=== PATIENT | female | born 1990 | race Caucasian/White ===

== ENCOUNTER → 2017-12-20 16:26 | Outpatient (CLI) | payer BC, SELFPAY | PROVIDERS: Visit Provider Obstetrics & Gynecology | DX: Z12.4 Encounter for screening for malignant neoplasm of cervix (principal) | CPT/HCPCS: 88175; G0145 ==

== ENCOUNTER → 2018-07-31 15:18 | Outpatient (CLI) | payer BC, SELFPAY ==
[2014-10-21 07:07] VITALS: BMI 27.2
[2018-07-31 18:26] LABS: Chlamydia Trachomatis by PCR Negative (Negative); Neisserai gonorrhoeae by PCR Negative (Negative); Probe Check PASS; Sample Adequacy Control PASS; Specimen Processing Control PASS
== END ==
PROVIDERS: Visit Provider Obstetrics & Gynecology
DX: Z34.81 Encounter for supervision of other normal pregnancy, first trimester (principal); Z11.3 Encounter for screening for infections with a predominantly sexual mode of transmission
CPT/HCPCS: 87491; 87591

== ENCOUNTER → 2018-08-26 13:27 | Outpatient (CLI) | payer BC, SELFPAY ==
[2018-08-26 15:52] LABS: Absolute Lymphocyte Count 2.03 X10^3/ul (0.83-4.51); Absolute Neutrophil Count 6.8 X10^3/uL (2.0-7.7); Basophil# 0.02 X10^3/uL; Basophil% 0.2 % (0-1); Eosinophil# 0.14 X10^3/uL; Eosinophils% 1.4 % (0-5); Hematocrit 37.3 % (37-47); Hemoglobin 12.2 g/dl (12.0-15.0); Lymphocyte # 2.03 X10^3/ul (4.0); Lymphocyte % 20.9 % (19-41); Mean Corp Hgb Conc 32.7 g/gl (32-36); Mean Corpuscular Hgb 27.9 pg (27.0-32.0); Mean Corpuscular Volume 85.4 fL (81-99); Mean Platelet Vol. 9.9 fl (6.2-12.0); Monocyte# 0.76 X10^3/uL; Monocyte% 7.8 % (0-10); Neutrophil # 6.75 X10^3/uL (2.7-7.7); Neutrophil % 69.4 % (47-70); Platelet Count 346 K/mm3 (150-450); RBC Distribution Width CV 12.3 % (11.6-14.6); Red Blood Count 4.37 M/mm3 (4.2-5.4); White Blood Count 9.7 K/mm3 (4.4-11.0)
[2018-08-26 15:54] LABS: POSITIVE COUNT NO; POSITIVE DIFFERENTIAL NO; POSITIVE MORPHOLOGY NO
[2018-08-26 15:55] LABS: Color, Urine Yellow (Yellow); Glucose, Dipstick Normal (Normal); Ketone-Dipstick Negative (Negative); Leukocyte Esterase-Dipstick 25 /ul (Negative); Nitrite-Dipstick Negative (Negative); Occult Blood-Urine Negative /ul (Negative); Protein-Dipstick Negative (Negative); Specific Gravity, Urine 1.005 (1.002-1.030); Urine Bilirubin Dipstick Negative (Negative); Urine Clarity Clear (Clear); Urine Urobilinogen Normal (Normal)
[2018-08-26 16:03] LABS: COTININE Drug Screen Positive (<200 ng/mL)
[2018-08-26 16:14] LABS: Thyroid Stim Hormone (TSH) 0.92 uIU/mL (0.358-3.74)
[2018-08-26 16:24] LABS: Amphetamine Urine VISTA NEGATIVE (<1000 ng/mL); Barbiturate Urine VISTA NEGATIVE (< 200 ng/mL); Benzodiazepine Urine VISTA NEGATIVE (< 200 ng/mL); Cocaine Urine VISTA NEGATIVE (< 300 ng/mL); Ecstacy Urine VISTA NEGATIVE (< 500 ng/mL); Methadone Urine VISTA NEGATIVE (< 300 ng/mL); PCP Urine VISTA NEGATIVE (< 25 ng/mL); THC Urine VISTA NEGATIVE (< 50 ng/mL); Vista UDS pH Range 7
[2018-08-26 16:58] LABS: HIV - WCH Non-Reactive (Nonreactive); Rubella IgG > 500.0 IU/mL; Vitamin D,25 Hydroxy 23.9 ng/mL (29.95-100.01)
[2018-08-29 03:39] LABS: Prenatal RPR NONREACTIVE (NONREACTIVE)
[2018-08-29 12:11] LABS: HEPATITIS B SURFACE AG Negative (Negative)
[2018-08-29 12:12] LABS: Hep C Antibodies <0.1 s/co ratio (0.0-0.9)
== END ==
PROVIDERS: Visit Provider Obstetrics & Gynecology
DX: Z34.81 Encounter for supervision of other normal pregnancy, first trimester (principal)
CPT/HCPCS: 36415; 80307; 81002; 82306; 84443; 85025; 86703; 86762; 86803; 87340

== ENCOUNTER → 2018-09-15 12:24 | Outpatient (CLI) | payer BC, SELFPAY ==
--- NOTE | 2018-09-15 12:29 | US_ITS ---
STUDY: ULTRASOUND BREAST - LEFT REASON FOR EXAM: Female, 27 years old. Breast lump on the left side for 2 weeks status post Earnest Knauer resolved. TECHNIQUE: Axial and longitudinal images of the LEFT breast were performed with a high resolution ultrasound transducer. COMPARISON: None. FINDINGS: LEFT Breast: Multiple ultrasound static images that are marked left breast area of palpable abnormality are submitted for interpretation and documentation. There is no sonographically evident discrete mass, cyst or nodule. There is no fluid collection. US/Breast Limited Unilateral IMPRESSION: No sonographically evident pathology. ASSESSMENT CATEGORY: BIRADS Category 1: Negative. A letter regarding these results will be sent to the patient by the facility within 30 days. Electronically Signed: Fredi Martinez MD at 13:57 EDT , Service support ,
== END ==
PROVIDERS: Visit Provider Obstetrics & Gynecology
DX: O26.891 Other specified pregnancy related conditions, first trimester (principal); N63.20 Unspecified lump in the left breast, unspecified quadrant; Z3A.13 13 weeks gestation of pregnancy
CPT/HCPCS: 76642

== ENCOUNTER → 2018-12-26 10:53 | Outpatient (CLI) | payer BC, SELFPAY ==
[2018-12-26 12:15] LABS: Glucose Challenge Gest 1H 50g 144 mg/dL (70-140)
[2018-12-26 12:23] LABS: Hematocrit 31.2 % (37-47); Hemoglobin 9.9 g/dL (12.0-15.0); Mean Corp Hgb Conc 31.7 g/dL (32-36); Mean Corpuscular Hgb 28.2 pg (27.0-32.0); Mean Corpuscular Volume 88.9 fL (81-99); Mean Platelet Vol. 10.5 fl (6.2-12.0); Platelet Count 261 K/mm3 (150-450); RBC Distribution Width CV 12.1 % (11.6-14.6); RBC Distribution Width SD 38.5 fl (35.1-43.9); Red Blood Count 3.51 M/mm3 (4.2-5.4); White Blood Count 8.4 K/mm3 (4.4-11.0)
[2018-12-29 15:57] LABS: Ferritin 41 ng/mL (8-252)
== END ==
PROVIDERS: Visit Provider Obstetrics & Gynecology
DX: Z34.82 Encounter for supervision of other normal pregnancy, second trimester (principal)
CPT/HCPCS: 36415; 82728; 82950; 85027

== ENCOUNTER → 2019-01-06 09:52 | Outpatient (CLI) | payer BC, SELFPAY ==
[2019-01-06 11:34] LABS: Glucose GTT-Gestation. Fasting 67 mg/dL (<105)
[2019-01-06 12:00] LABS: Glucose GTT-Gestational 1 Hr 137 mg/dL (<190)
[2019-01-06 12:53] LABS: Glucose GTT-Gestational 2 Hr 128 mg/dL (<165)
[2019-01-06 14:05] LABS: Glucose GTT-Gestational 3 Hr 79 L (<145)
== END ==
PROVIDERS: Referring Provider Obstetrics & Gynecology; Visit Provider Obstetrics & Gynecology
DX: O99.810 Abnormal glucose complicating pregnancy (principal); Z3A.00 Weeks of gestation of pregnancy not specified
CPT/HCPCS: 36415; 82951; 82952

== ENCOUNTER → 2019-02-27 15:00 | Outpatient (CLI) | payer BC, SELFPAY ==
[2014-10-21 07:07] VITALS: BMI 27.2
== END ==
PROVIDERS: Visit Provider Obstetrics & Gynecology
DX: Z36.85 Encounter for antenatal screening for Streptococcus B (principal)
CPT/HCPCS: 87081

== ENCOUNTER 2019-03-19 06:55 | Inpatient (IN) | payer BC, SELFPAY ==
[2014-10-21 07:07] VITALS: BMI 27.2
[2019-03-19] MEDS: Lactated Ringers 1,000 ML 50 ML IV (07:10)
[2019-03-19 07:30] VITALS: BMI 29.1
--- NOTE | 2019-03-19 07:31 | PCM.HP.OB ---
- Problem List (1) 39 weeks gestation of Status: Acute History Date of Admission: 03/19/19 Final OMAYRA: 03/22/19 Final OMAYRA Source: US <20 weeks Gestational age: 39 Weeks and 4 Days History of this : This is a 28 year-old, G [4], P [2012], at 39 4/7 weeks gestational age for scheduled induction of labor. Allergies Penicillins Allergy (Verified 03/17/14 10:44) Hives Home Medications: Home Medications RX: Vits [Prenatabs FA ] 1 tablet PO DAILY 08/16/14 RX: Naproxen [Naprosyn] 500 mg PO Q12H PRN PRN #40 tablet 10/21/14 RX: Senna/Docusate Sodium [Senokot-S] 1 - 2 tablet PO DAILY PRN PRN #30 tablet 10/21/14 Smoking Status: Former smoker Alcohol: None Number of Fetus(es): 1 NST - FHR Rate Baby A Baseline: 135 Variability:: Moderate Accelerations:: 15 x 15 Decelerations:: None NST Reactive:: Yes FHR Category:: Category I Uterine Activity:: 10/03 History Past Pregnancies: Past Pregnancies Delivery Date Name GA/Weeks Outcome Route Weight Infant Gender Labor Length Anesthesia Delivery Location Provider FOB 02/04 8 SAB Naveen 07/08 William 40 Living 5lb 13oz M 4 Epidural [facility] Naveen 10/08 Luciano 38 Living 7lb 4oz M 12 None [facility] Naveen Labs: Mom's Problem List Problem Status Onset Code 39 weeks gestation of Acute Z3A.39 Mom's Labs & Results 03/19/19 03/19/19 07:50 07:50 WBC 12.5 H RBC 3.33 L Hgb 9.6 L Hct 29.4 L MCV 88.3 MCH 28.8 MCHC 32.7 RDW Std Deviation 39.7 RDW Coeff of Nanci 12.4 Plt Count 276 MPV 10.5 Immature Gran % (Auto) 1.800 H Neut % (Auto) 78.4 H Lymph % (Auto) 12.5 L [place] % (Auto) 6.3 Eos % (Auto) 0.6 Baso % (Auto) 0.4 Absolute Neuts (auto) 9.8 H Absolute Lymphs (auto) 1.56 Nucleated RBC % 0 Blood Type B POSITIVE Antibody Screen NEGATIVE Course Did the patient receive Yes care? Labs Blood Type: B RH: POSITIVE RPR/VDRL/Syphilis Nonreactive Rubella status Immune HbSAg Negative Date Done: 08/26/18 HIV/AIDS Non-Reactive Group B Strep: Negative Current Obstetrical History Gestational Diabetes No Incompetent Cervix No Infertility No IUGR No Macrosomia No Hypertension/Pre-eclampsia No Placenta Previa/Abruption No PTL/PROM No Uterine anomaly No Oligohydramnios No Polyhydramnios No Multiple gestation No Past Medical History Asthma No Diabetes No Hypertension No Heart disease No Mitral valve prolapse No Neurologic/Seizure disorder/ No Migraines Kidney disease No Liver disease No Varicosities No Clotting disorders/Hx of DVT No Thyroid Dysfunction No Other medical diseases No Psychiatric disorders No Major trauma No Abnormal PAP smear No Sleep apnea No Mammogram in the last 2 years No Social History Marital Status: Alleged father Naveen Sifuentes Hx Smoking Yes Smoking Status Former smoker Expected Infant Delivery Method: Spontaneous Vaginal Number of Visits: 13 Physical Exam Vitals: avss General: Alert, Oriented x3, Cooperative, No apparent distress Lungs: Normal air movement Abdomen: Soft, Non Tender, Non-Distended, Gravid Neurological: Neuro grossly intact Estimated gestational size: Appropriate for gestational size Cervix Dilation (cm): 3.5 Station: -3 Effacement (%): 75 Assessment/Plan All Active Problems 39 weeks gestation of (Acute) This is a 28 year-old, G [4], P [2012], at 39 4/7 weeks gestational age presenting for IOL. -Pitocin induction as planned - status reassuring
[2019-03-19] MEDS: Oxytocin 30 units/NS 500 ml 30 UNITS/500 ML IV.SOLN IV (08:05)
[2019-03-19 08:07] LABS: Absolute Lymphocyte Count 1.56 X10^3/uL (0.83-4.51); Absolute Neutrophil Count 9.8 X10^3/uL (2.0-7.7); Basophil# 0.05 X10^3/uL; Basophil% 0.4 % (0-1); Eosinophil# 0.08 X10^3/uL; Eosinophils% 0.6 % (0-5); Hematocrit 29.4 % (37-47); Hemoglobin 9.6 g/dL (12.0-15.0); Lymphocyte # 1.56 X10^3/ul (4.0); Lymphocyte % 12.5 % (19-41); Mean Corp Hgb Conc 32.7 g/dL (32-36); Mean Corpuscular Hgb 28.8 pg (27.0-32.0); Mean Corpuscular Volume 88.3 fL (81-99); Mean Platelet Vol. 10.5 fl (6.2-12.0); Monocyte# 0.78 X10^3/uL; Monocyte% 6.3 % (0-10); NRBC Flagged by Analyzer 0 % (0-5); Neutrophil # 9.78 X10^3/uL (2.7-7.7); Neutrophil % 78.4 % (47-70); Platelet Count 276 K/mm3 (150-450); RBC Distribution Width CV 12.4 % (11.6-14.6); RBC Distribution Width SD 39.7 fl (35.1-43.9); Red Blood Count 3.33 M/mm3 (4.2-5.4); White Blood Count 12.5 K/mm3 (4.4-11.0)
--- NOTE | 2019-03-19 10:49 | PCM.PN.BLA ---
Progress Note LABOR PROGRESS NOTE Contractions are regular. AVSS GEN - NAD, AAO x 3 SVE 5/75/-2 FHR 4-5/10 min TOCO 4-5/10 min A/P: 28yo @ 39 4/7wga, Cat I FHR - IOL -Amniotomy performed with clear fluid -Continue pitocin as tolerated by mother and fetus
--- NOTE | 2019-03-19 14:13 | PCM.OPRPT ---
Problem List (1) 39 weeks gestation of Status: Acute Report of Operation Date of Procedure: 03/19/19 Vaginal Delivery Maternal Presentation: Elective Induction Method of Induction: Pitocin, Amniotomy Amniotic Membrane Rupture Type: Artificial Rupture of Membrane time: 03/19/19 1036h Amniotic Fluid Description: Clear Final OMAYRA: 03/22/19 Final OMAYRA Source: US <20 weeks Gestational age: 39 Weeks and 4 Days Date of Procedure: 03/19/19 Pre-Operative Diagnosis: 39 4/7wga Post-Operative Diagnosis: 39 4/7wga Surgery/ Procedure Performed: Spontaneous Vaginal Delivery Type of Anesthesia: None Description of Procedure: Patient was fully dilated with bulging perineum on my arrival. Category 1 heart rate tracing. She pushed to deliver a vigorous male over an intact perineum. The was placed on maternal abdomen and further attended by nursery personnel. Cord was doubly clamped and cut at approximately 2 minutes of life. The placenta delivered spontaneously and appeared intact on inspection. The fundus was firm at one finger with below the umbilicus. Presentation: Vertex, DELICIA Placental Delivery Description: Spontaneous Placenta Disposition: [facility] Cord Vessel Description: 3 Vessels Nuchal Cord Compression: Without compression Cord Entanglement: None Estimated Blood Loss: 50 ml Infant A gender: Male (1 minute): 8 (5 minute): 9 Episiotomy Description: None Laceration: None Medications given after delivery: IV Pitocin Complications: None
[2019-03-19] MEDS: Acetaminophen 325 MG Tablet PO (15:23)
[2019-03-19 19:55] VITALS: BP 103/63; PULSE 86; RESP 16; TEMP 36.7; O2SAT 97
--- NOTE | 2019-03-19 20:49 | DCINST_ITS ---
Discharge Diet: No Restrictions Discharge Activity: Return to Normal Activity Additional Instructions: If you experience any of the following, contact your healthcare provider. * Bleeding that soaks a pad every hour for 2 hours * Fever 100.4 or higher * Unrelieved incision or abdominal pain * Swelling, redness, discharge or bleeding from your incision or episiotomy site * Your incision begins to separate * Problems urinating (including inability to urinate or burning while urinating). * Visual changes * Severe headache * Flu-like symptoms * Pain or redness in one of both of your breasts * Pain, warmth, tenderness or swelling in your legs, especially the calf area * Frequent nausea and vomiting * Symptoms of depression or anxiety If you experience any of the following, call 911 or go to the nearest Emergency Room. * Chest pain * Problems breathing * Seizure activity * Partial or complete paralysis of a body part, slurred speech, weakness or drooping of the face, or a sudden inability to walk or hold your balance Allergies/Adverse Reactions: Allergies Penicillins Allergy (Verified 03/17/14 10:44) Hives Medications to take at Discharge Vits [Prenatabs FA ] 1 tablet PO DAILY 08/16/14 Ibuprofen [Motrin] 600 mg PO Q8H PRN PRN #30 tab 03/19/19 The following prescriptions were given: Ibuprofen [Motrin] 600 mg PO Q8H PRN PRN #30 tab PRN Reason: Pain Or Fever Transmission Status: Pending to [id number] Please Follow Up With: Radha Gu MD When: 6 weeks Primary Care Physician: Care Physician,No Primary [Primary Care Provider] - Test Results: Test results from this visit will be discussed in further detail at your follow- up appointment, if applicable.
--- NOTE | 2019-03-19 20:49 | PCM.DCVAG ---
Discharge Diet: No Restrictions Discharge Activity: Return to Normal Activity Additional Instructions: If you experience any of the following, contact your healthcare provider. Bleeding that soaks a pad every hour for 2 hours Fever 100.4 or higher Unrelieved incision or abdominal pain Swelling, redness, discharge or bleeding from your incision or episiotomy site Your incision begins to separate Problems urinating (including inability to urinate or burning while urinating). Visual changes Severe headache Flu-like symptoms Pain or redness in one of both of your breasts Pain, warmth, tenderness or swelling in your legs, especially the calf area Frequent nausea and vomiting Symptoms of depression or anxiety If you experience any of the following, call 911 or go to the nearest Emergency Room. Chest pain Problems breathing Seizure activity Partial or complete paralysis of a body part, slurred speech, weakness or drooping of the face, or a sudden inability to walk or hold your balance Allergies/Adverse Reactions: Allergies Penicillins Allergy (Verified 03/17/14 10:44) Hives Medications to take at Discharge Vits [Prenatabs FA ] 1 tablet PO DAILY 08/16/14 Ibuprofen [Motrin] 600 mg PO Q8H PRN PRN #30 tab 03/19/19 The following prescriptions were given: Ibuprofen [Motrin] 600 mg PO Q8H PRN PRN #30 tab PRN Reason: Pain Or Fever Transmission Status: Pending to [id number] Please Follow Up With: Radha Gu MD When: 6 weeks Primary Care Physician: Care Physician,No Primary [Primary Care Provider] - Test Results: Test results from this visit will be discussed in further detail at your follow-up appointment, if applicable.
[2019-03-19] MEDS: Ibuprofen 600 MG Tablet PO (20:57)
[2019-03-20 00:15] VITALS: BP 97/54; PULSE 70; RESP 18; TEMP 36.3; O2SAT 97
--- NOTE | 2019-03-20 03:25 | NURSING ---
Pt states lt thigh remains painful from pushing during labor. Offered pain medication, pt denies need at this time. To notify RN if wanting additional pain medication.
[2019-03-20 04:17] VITALS: BP 105/67; PULSE 70; RESP 18; TEMP 37.2; O2SAT 98
--- NOTE | 2019-03-20 07:00 | PCM.PN.OB ---
Patient Problems: Active and Suspected Problems 39 weeks gestation of (Acute) Subjective: No issues overnight. She is sore, cramping mild Denies heavy lochia. nursing well. Objective: AVSS - Physical Exam Vitals/I&O's: Vital Signs Temp Pulse Resp BP Pulse Ox 98.6 F 67 20 H 116/78 96 03/20/19 08:10 03/20/19 08:10 03/20/19 08:10 03/20/19 08:10 03/20/19 08:10 Oxygen Delivery Method Room Air Weight: 72.235 kg Body Mass Index (BMI) 29.1 Intake and Output for Last 24 Hours 03/18/19 03/19/19 03/20/19 23:59 23:59 23:59 Intake Total 1125.00 / 1125.00 Balance 1125.00 / 1125.00 General: Alert, Oriented x3, Cooperative, No apparent distress HEENT: Atraumatic, Normocephalic Lungs: Clear to auscultation, Normal air movement Cardiovascular: Regular rate, Regular Rhythm, Normal S1, Normal S2 Abdomen: Soft, Non Tender, Non-Distended, - - Fundus firm and nontender Extremities: No edema, No Calf Tenderness Neurological: Neuro grossly intact Psych/Mental Status: Normal Affect, Appropriate, Alert and oriented to time, place, person, mood and affect Laboratory Results 03/19/19 07:50: Blood Type B POSITIVE, Antibody Screen NEGATIVE Current Medications Acetaminophen (Tylenol) 1,000 mg PO Q8H PRN PRN PRN Reason: Pain Score 1-3/10 Bisacodyl (Dulcolax) 10 mg RECTAL UD PRN PRN Reason: If no BM Dibucaine (Dibucaine) 1 applic TOPICAL TID PRN PRN; Protocol PRN Reason: Discomfort Hydrocortisone (Hytone) 1 applic TOPICAL TID PRN PRN; Protocol PRN Reason: Discomfort Ibuprofen (Motrin) 600 mg PO Q6H PRN PRN PRN Reason: Pain Score 1-3/10 Last Admin: 03/19/19 20:57 Dose: 600 mg Documented by: Methylergonovine Maleate (Methergine) 0.2 mg IM X1 PRN PRN Reason: Excess bleeding/uterine atony Senna/Docusate Sodium (Senokot-S, Bertha-Colace) 1 - 2 tablet PO DAILY PRN PRN PRN Reason: Constipation Simethicone (Mylicon) 80 mg PO PCHS PRN PRN Reason: Indigestion/Stomach pain Sodium Chloride () 5 - 15 ml IV UD PRN PRN Reason: SALINE FLUSH Medical Necessity - Tobacco Use Smoking Status: Former smoker Assessment/Plan All Active Problems 39 weeks gestation of (Acute) This is a 28 year-old, G [4], P [3013], PPD#1 s/p doing well. -Rh positive -Rubella immune - -Routine care -d/c home later today
[2019-03-20 08:10] VITALS: BP 116/78; PULSE 67; RESP 20; TEMP 37; O2SAT 96
[2019-03-20 12:20] VITALS: BP 116/72; PULSE 76; TEMP 36.9; O2SAT 99
== END 2019-03-20 15:10 | disposition home or self-care (01) | DRG 807 ==
PROVIDERS: Admitting Provider Obstetrics & Gynecology; Referring Provider Obstetrics & Gynecology; Visit Provider Obstetrics & Gynecology
DX: O69.1XX0 Labor and delivery complicated by cord around neck, with compression, not applicable or unspecified (principal); Z87.891 Personal history of nicotine dependence; Z3A.39 39 weeks gestation of pregnancy; Z37.0 Single live birth
CPT/HCPCS: 59025; 59050; 85025; 86850; 86900; 86901; 99218; J7120; G0378

== ENCOUNTER → 2020-06-07 10:51 | Outpatient (CLI) | payer BC, SELFPAY ==
[2020-06-07 14:00] LABS: Free T3 2.6 pg/mL (2.18-3.98); Thyroid Stim Hormone (TSH) 1.29 uIU/mL (0.358-3.74)
[2020-06-12 07:23] LABS: HPV APTIMA, High Risk Negative (Negative)
[2020-06-12 07:26] LABS: HPV Reflexed? YES, CHARGE PATIENT
== END ==
PROVIDERS: Visit Provider Obstetrics & Gynecology
DX: Z12.4 Encounter for screening for malignant neoplasm of cervix (principal); E03.9 Hypothyroidism, unspecified
CPT/HCPCS: 36415; 84439; 84443; 84481; 87624; 88175; G0145

== ENCOUNTER 2021-08-08 12:33 | Outpatient (CLI) | payer BC, SELFPAY ==
[2021-08-08 13:24] LABS: Hematocrit 43.4 % (37-47); Hemoglobin 13.9 g/dL (12.0-15.0); Mean Corpuscular Volume 87.3 fL (81-99); Mean Platelet Vol. 9.4 fl (6.2-12.0); Platelet Count 425 K/mm3 (150-450); RBC Distribution Width CV 11.9 % (11.6-14.6); RBC Distribution Width SD 38.1 fl (35.1-43.9); Red Blood Count 4.97 M/mm3 (4.2-5.4); White Blood Count 9.3 K/mm3 (4.4-11.0)
[2021-08-08 13:46] LABS: Thyroid Stim Hormone (TSH) 1.53 uIU/mL (0.358-3.74)
[2021-08-08 13:49] LABS: Vitamin D,25 Hydroxy 24.1 ng/mL
== END 2021-08-08 23:59 | disposition home or self-care (01) ==
LOC: WOBLAB 12:33
PROVIDERS: Visit Provider Obstetrics & Gynecology
DX: N93.9 Abnormal uterine and vaginal bleeding, unspecified (principal); F32.A Depression, unspecified
CPT/HCPCS: 36415; 82306; 84443; 85027